=== PATIENT | female | born 1995 | race African-American/Black ===

== ENCOUNTER 2019-07-24 14:57 | Inpatient (IN) ==
[2019-07-24] MEDS: LACTATED RINGERS 1,000 ML IV SCH (16:15)
[2019-07-24] MEDS ORDERED: MEPERIDINE 50 MG/1 ML VIAL IV PRN (16:18)
[2019-07-24] MEDS ORDERED: LACTATED RINGERS 500 ML IV PRN (16:18)
[2019-07-24] MEDS ORDERED: ONDANSETRON 4 MG/2 ML VIAL IV PRN (16:18)
[2019-07-24] MEDS ORDERED: BUTORPHANOL 2 MG/ML VIAL IV PRN (16:18)
[2019-07-24] MEDS ORDERED: DINOPROSTONE VAG GEL 10 MG SYRINGE VAG ONE (16:20)
[2019-07-24 16:41] LABS: Basophils % 0.2 % (0.0-0.8); Eosinophils # 0.1 10*3/uL (0.0-0.87); Eosinophils % 1.5 % (0.00-10.9); Hemoglobin 10.2 GM/DL (12.0-16.0); Immature Granulocytes % 0.7 %; Immature Granulocytes Absolute 0.06 #; Lymphocytes # 2.6 10*3/uL (1.4-4.0); Lymphocytes % 32.6 % (21.3-54.2); Mean Corpuscular Volume 74.2 FL (87-102); Mean Platelet Volume 12.4 FL (9.6-12.0); Monocytes % 7.7 % (1.7-12.7); Neutrophils % 57.3 % (38.7-73.9); Platelet Count 192 T/CUMM (130-400); Red Blood Count 4.58 MC/CUMM (3.8-5.5); Red Cell Distribution Width 17.9 % (9.3-17.3)
[2019-07-24 17:08] LABS: Albumin 2.6 G/DL (3.4-5.0); Bilirubin,Total 1.4 MG/DL (0.2-1.0); Calcium 8.8 MG/DL (8.5-10.1); Osmolality,Calculated 269.7 MOS/KG (273-304); Total Protein 6.7 G/DL (6.4-8.3); Uric Acid 3.7 MG/DL (2.6-6.0)
[2019-07-24 20:17] LABS: Macrocytosis 1+; Microcytosis 1+; Platelet Estimate Adequate; Polychromasia 1+; Spherocytes 1+
[2019-07-25] MEDS: LACTATED RINGERS 1,000 ML IV SCH ×2 (00:36→13:30)
[2019-07-25] MEDS: OXYTOCIN/LR 20 UNIT/1,000 ML BAG IV SCH (01:07)
[2019-07-25] MEDS ORDERED: OXYTOCIN/LR 20 UNIT/1,000 ML BAG IV SCH (02:00)
[2019-07-26] MEDS: OXYTOCIN/LR 20 UNIT/1,000 ML BAG IV SCH (08:14)
[2019-07-26] MEDS ORDERED: ePHEDrine 50 MG/ML AMP IV PRN (09:32)
[2019-07-26] MEDS ORDERED: CITRIC ACID/SODIUM CITRATE 30 ML UDCUP PO ONE (09:32)
[2019-07-26] MEDS ORDERED: ONDANSETRON 4 MG/2 ML VIAL IV ONE (09:32)
[2019-07-26] MEDS ORDERED: PROMETHAZINE 25 MG/1 ML VIAL IM ONE (09:32)
[2019-07-26] MEDS ORDERED: hydrOXYzine HCL 25 MG/1 ML VIAL IM PRN (09:32)
[2019-07-26] MEDS ORDERED: LACTATED RINGERS 1,000 ML IV ONE (09:32)
[2019-07-26] MEDS ORDERED: NALOXONE 0.4 MG/ML VIAL IV PRN (09:32)
[2019-07-26] MEDS ORDERED: FAMOTIDINE 20 MG/2 ML VIAL IV ONE (09:32)
[2019-07-26] MEDS ORDERED: diphenhydrAMINE 50 MG/1 ML VIAL IV PRN ×2 (09:32)
[2019-07-26] MEDS: LACTATED RINGERS 1,000 ML IV SCH ×4 (10:21→15:01)
[2019-07-26] MEDS: fentaNYL 2 MCG/ROPIV 0.2% EPID 100 ML EPIDURAL SCH (10:22)
[2019-07-26 11:39] LABS: Apearance,Urine CLEAR (Clear); Bilirubin,Urine Negative (Negative); Blood, Urine Negative (Negative); Glucose,Urine (UA) Negative (Negative); Ketones,Urine Negative (Negative); Mucus,Urine Few /LPF (Occasional); Nitrite,Urine Negative (Negative); Protein,Urine Negative; RBC,Urine 1 /HPF (0-4); Urine Color Yellow (Yellow); WBC,Urine <1 /HPF (0-6)
[2019-07-26] MEDS ORDERED: OXYTOCIN 10 UNIT/ML VIAL IM ONE (16:45)
[2019-07-26] MEDS ORDERED: OXYTOCIN/LR 30 UNIT/1,000 ML BAG IV ONE (16:45)
[2019-07-26] MEDS ORDERED: ceFAZolin 3,000 MG in SYRINGE 1 EACH IV ONE (16:49)
[2019-07-26] MEDS ORDERED: ONDANSETRON 4 MG/2 ML VIAL ONE (17:08)
[2019-07-26] MEDS ORDERED: SODIUM BICARBONATE 2.4 MEQ/5 ML VIAL ONE (17:08)
[2019-07-26] MEDS ORDERED: LIDOCAINE MPF 2% /EPI 20 ML VIAL ONE (17:08)
[2019-07-26 19:39] LABS: Cord Arterial Blood HCO3 24.5 MMOL/L
[2019-07-26 19:40] LABS: Cord Venous Blood HCO3 19.8 MMOL/L; Cord Venous Blood PCO2 52.2 MMHG
[2019-07-26 19:42] LABS: Cord Venous Blood PO2 18.7
[2019-07-26] MEDS ORDERED: ACETAMINOPHEN 325 MG TABLET PO PRN (20:03)
[2019-07-26] MEDS ORDERED: ONDANSETRON 4 MG/2 ML VIAL IV PRN (20:03)
[2019-07-26] MEDS ORDERED: RHO(D) IMMUNE GLOBULIN 300 MCG SYRINGE IM ONE (20:03)
[2019-07-26] MEDS ORDERED: OXYTOCIN/LR 20 UNIT/1,000 ML BAG IV ONE (20:03)
[2019-07-26] MEDS ORDERED: PROPOFOL 200 MG/20 ML VIAL IV ONE (22:47)
[2019-07-27] MEDS: DOCUSATE SODIUM 100 MG CAPSULE PO SCH ×3 (00:47→20:23)
[2019-07-27] MEDS: IBUPROFEN 800 MG TABLET PO PRN (00:58)
[2019-07-27] MEDS: ceFAZolin 1,000 MG in SYRINGE 1 EACH IV SCH ×2 (02:32→09:40)
[2019-07-27] MEDS ORDERED: diphenhydrAMINE 50 MG/1 ML VIAL IV PRN (04:01)
[2019-07-27 05:40] LABS: Basophils % 0.1 % (0.0-0.8); Eosinophils # 0.1 10*3/uL (0.0-0.87); Eosinophils % 0.4 % (0.00-10.9); Hematocrit 27.9 VOL% (35.7-47.0); Hemoglobin 8.3 GM/DL (12.0-16.0); Immature Granulocytes % 0.4 %; Immature Granulocytes Absolute 0.05 #; Lymphocytes % 17.6 % (21.3-54.2); Mean Corpuscular HGB Conc 29.7 GM/DL (32-36); Mean Platelet Volume 12.3 FL (9.6-12.0); Monocytes % 6.8 % (1.7-12.7); Neutrophils % 74.7 % (38.7-73.9); Platelet Count 157 T/CUMM (130-400); Red Blood Count 3.77 MC/CUMM (3.8-5.5); Red Cell Distribution Width 17.9 % (9.3-17.3); White Blood Count 11.5 T/CUMM (4-12)
[2019-07-27 06:01] LABS: Hypochromasia 1+; Microcytosis 1+; Ovalocytes Slight; Platelet Estimate Adequate
[2019-07-27] MEDS: MULTIVITAMIN (PRENATAL) TABLET PO SCH (09:48)
[2019-07-27] MEDS: SIMETHICONE CHEW 80 MG TABLET PO PRN ×2 (09:48→20:23)
[2019-07-27] MEDS: MAGNESIUM HYDROXIDE SUSP 30 ML UDCUP PO PRN ×2 (09:48→20:23)
[2019-07-27] MEDS ORDERED: diphenhydrAMINE CAP 25 MG CAPSULE PO PRN (13:48)
[2019-07-27] MEDS ORDERED: diphenhydrAMINE 2% CREAM 28 GM TUBE TOP PRN (13:49)
[2019-07-27] MEDS ORDERED: METOCLOPRAMIDE 10 MG TABLET ONE (20:21)
[2019-07-27] MEDS: FERROUS SULFATE 325 MG TABLET PO SCH (20:23)
[2019-07-27] MEDS: METOCLOPRAMIDE 10 MG TABLET PO SCH (20:23)
[2019-07-28] MEDS: METOCLOPRAMIDE 10 MG TABLET PO SCH (04:11)
[2019-07-28] MEDS: LACTATED RINGERS 1,000 ML IV SCH ×2 (05:29→05:30)
[2019-07-28] MEDS: fentaNYL 2 MCG/ROPIV 0.2% EPID 100 ML EPIDURAL SCH (05:31)
[2019-07-28] MEDS: MULTIVITAMIN (PRENATAL) TABLET PO SCH (09:05)
[2019-07-28] MEDS: FERROUS SULFATE 325 MG TABLET PO SCH (09:05)
[2019-07-28] MEDS: DOCUSATE SODIUM 100 MG CAPSULE PO SCH (09:05)
[2019-07-28] MEDS: IBUPROFEN 800 MG TABLET PO PRN (10:36)
[2019-07-28 11:13] VITALS: BP 133/84
== END 2019-07-28 13:40 | disposition home or self-care (01) | DRG 540 ==
LOC: N.LD 14:57 → N.OB 07-27 00:02
PROVIDERS: ADMIT Obstetrics & Gynecology; ATTEND Obstetrics & Gynecology
PROC: LDCSECT (ICD-10-PCS; 2019-07-26 18:30)